=== PATIENT | male | born 1950 | race Caucasian/White ===

== ENCOUNTER 2018-04-16 11:16 | Emergency (ER) | payer MEDICARE, OTHER, BC ==
[2018-04-16] MEDS: CEPHALEXIN 500 MG CAP PO (11:40)
[2018-04-16] MEDS: TRIMETHOPRIM/SULFAMETHOX (DS) TAB PO (11:40)
[2018-04-16] MEDS: DIPHTH/TET/ACEL PERTUSS (ADULT) 0.5 ML VIAL IM* (11:41)
[2018-04-16] MEDS: LIDOCAINE 1% (MDV) 20 ML INJ SC (11:47)
== END 2018-04-16 12:07 | disposition home or self-care (01) ==
LOC: FTE 11:16
DX: L03.011 Cellulitis of right finger (principal); E11.9 Type 2 diabetes mellitus without complications; I10 Essential (primary) hypertension; I25.10 Atherosclerotic heart disease of native coronary artery without angina pectoris; Z23 Encounter for immunization; Z79.01 Long term (current) use of anticoagulants; Z79.4 Long term (current) use of insulin; Z79.82 Long term (current) use of aspirin; Z98.61 Coronary angioplasty status
CPT/HCPCS: 26011; 90471; 90715; 99283-25

== ENCOUNTER 2018-04-17 11:26 | Emergency (ER) | payer MEDICARE, OTHER | END 2018-04-17 13:46 | disposition home or self-care (01) | LOC: FTE 11:26 | DX: L03.011 Cellulitis of right finger (principal); I10 Essential (primary) hypertension; E11.9 Type 2 diabetes mellitus without complications; I25.10 Atherosclerotic heart disease of native coronary artery without angina pectoris; Z79.01 Long term (current) use of anticoagulants; Z79.4 Long term (current) use of insulin; Z79.82 Long term (current) use of aspirin; Z98.61 Coronary angioplasty status | CPT/HCPCS: 99281 ==

== ENCOUNTER 2019-02-22 21:45 | Inpatient (IN) | payer MEDICARE, OTHER ==
[2019-02-22 22:17] LABS: ADD MAN DIFF? NO
[2019-02-22] MEDS: CEFTRIAXONE 1 GM/50 ML (PMX) 50 ML IVPB (22:19)
[2019-02-22] MEDS: ACETAMINOPHEN 325 MG TAB PO (22:20)
[2019-02-22] MEDS: SODIUM CHLORIDE 0.9% 1L BAG IV* (22:20)
[2019-02-22 22:23] LABS: WHITE BLOOD COUNT 15.7 10^3/ul (4.8-10.8)
[2019-02-22 22:23] LABS: ABNORMAL IP MESSAGE 1; BASOPHIL # 0.1 10^3/ul (0.0-0.1); BASOPHILS % 0.3 % (0.0-2.0); EOSINOPHILS # 0.1 10^3/ul (0.0-0.5); EOSINOPHILS % 0.3 % (0.0-7.0); HEMATOCRIT 32.4 % (42.0-52.0); HEMOGLOBIN 10.4 g/dl (14.0-18.0); LYMPHOCYTES # 6.2 10^3/ul (0.8-2.9); LYMPHOCYTES % 39.2 % (15.0-51.0); MEAN CORPUSCULAR HEMOGLOBIN 28.3 pg (29.0-33.0); MEAN CORPUSCULAR HGB CONC 32.1 g/dl (32.0-37.0); MEAN PLATELET VOLUME 10.4 fl (7.4-10.4); MONOCYTE # 0.9 10^3/ul (0.3-0.9); MONOCYTES % 5.7 % (0.0-11.0); NEUTROPHIL # 8.5 10^3/ul (1.6-7.5); NEUTROPHILS % 54.2 % (39.0-77.0); PLATELET COUNT 148 10^3/UL (140-415); POSITIVE DIFF @See below; RED BLOOD COUNT 3.68 10^6/ul (4.70-6.10); RED CELL DISTRIBUTION WIDTH 13.3 % (11.5-14.5)
[2019-02-22 22:32] LABS: ALANINE AMINOTRANSFERASE 28 IU/L (13-69); ALBUMIN 3.8 g/dl (3.3-4.9); ALBUMIN/GLOBULIN RATIO 1.02; ALKALINE PHOSPHATASE 85 IU/L (42-121); ANION GAP 9 (5-13); ASPARTATE AMINO TRANSFERASE 43 IU/L (15-46); BILIRUBIN,INDIRECT 0.5 mg/dl (0-1.1); BILIRUBIN,TOTAL 0.5 mg/dl (0.2-1.3); BLOOD UREA NITROGEN 51 mg/dl (7-20); CALCIUM 8.5 mg/dl (8.4-10.2); CARBON DIOXIDE 24 mmol/L (21-31); CHLORIDE 105 mmol/L (97-110); CREATININE 3.57 mg/dl (0.61-1.24); Estimated GFR 17 mL/min (>60); GLUCOSE 280 mg/dl (70-220); POTASSIUM 5.5 mmol/L (3.5-5.1); SODIUM 138 mmol/L (135-144); TOTAL PROTEIN 7.5 g/dl (6.1-8.1)
[2019-02-22 22:36] LABS: ADD UMIC YES; UR ASCORBIC ACID NEGATIVE (NEGATIVE); UR BACTERIA FEW /HPF (NONE SEEN); UR BILIRUBIN (Dip) NEGATIVE (NEGATIVE); UR BLOOD (Dip) 2+ mg/dL (NEGATIVE); UR CLARITY CLEAR (CLEAR); UR COLOR YELLOW (YELLOW); UR GLUCOSE (Dip) 3+ mg/dL (NEGATIVE); UR KETONES (Dip) NEGATIVE (NEGATIVE); UR LEUKOCYTE ESTERASE (Dip) NEGATIVE Leu/ul (NEGATIVE); UR MUCUS FEW /HPF (NONE SEEN); UR NITRITE (Dip) NEGATIVE (NEGATIVE); UR RBC 18 /HPF (0-5); UR SPECIFIC GRAVITY (Dip) 1.015 (1.003-1.030); UR TOTAL PROTEIN (Dip) 3+ mg/dl (NEGATIVE); UR UROBILINOGEN (Dip) NEGATIVE (NEGATIVE); UR WBC 1 /HPF (0-5)
[2019-02-22 22:43] LABS: INR 1.09; PROTIME 14.2 Sec (11.9-14.9); PT RATIO 1.1
[2019-02-22 22:44] LABS: PARTIAL THROMBOPLASTIN TIME 41.1 Sec (23.0-35.0); TROPONIN-I 0.094 ng/ml (0.000-0.120)
[2019-02-22] MEDS: AZITHROMYCIN 500MG/NS (PMX) 250 ML IV (23:17)
[2019-02-23] MEDS ORDERED: ONDANSETRON 4 MG INJ IV ×2 (00:30→03:00)
[2019-02-23] MEDS ORDERED: ACETAMINOPHEN 325 MG TAB PO (00:30)
[2019-02-23 01:07] LABS: LACTIC ACID 1.4 mmol/L (0.5-2.0)
[2019-02-23] MEDS ORDERED: NACL 0.9% 3 ML SYG IV (03:00)
[2019-02-23] MEDS ORDERED: BISACODYL (EC) 5 MG TAB PO (03:00)
[2019-02-23] MEDS ORDERED: DOCUSATE SODIUM 100 MG CAP PO (03:00)
[2019-02-23] MEDS: NA POLYST SULFON 15 GM/60 ML BTL PO (03:10)
[2019-02-23] MEDS ORDERED: GLUCOSE GEL 15 GRAM TUBE PO ×2 (05:00)
[2019-02-23] MEDS ORDERED: GLUCOSE GEL 15 GRAM TUBE BUCCAL (05:00)
[2019-02-23] MEDS ORDERED: DEXTROSE 50% 50 ML SYRINGE IV ×2 (05:00)
[2019-02-23] MEDS ORDERED: GLUCAGON 1 MG INJ IM (05:00)
[2019-02-23 05:16] LABS: LACTIC ACID 0.8 mmol/L (0.5-2.0)
[2019-02-23] MEDS: HEPARIN 5,000 UNIT/1 ML VIAL SC ×3 (05:45→20:43)
[2019-02-23 06:26] LABS: ABNORMAL IP MESSAGE 1; ADD MAN DIFF? NO; BASOPHIL # 0.1 10^3/ul (0.0-0.1); BASOPHILS % 0.5 % (0.0-2.0); EOSINOPHILS # 0.1 10^3/ul (0.0-0.5); EOSINOPHILS % 0.6 % (0.0-7.0); HEMATOCRIT 29.1 % (42.0-52.0); HEMOGLOBIN 9.1 g/dl (14.0-18.0); LYMPHOCYTES # 5.9 10^3/ul (0.8-2.9); LYMPHOCYTES % 44.8 % (15.0-51.0); MEAN CORPUSCULAR HEMOGLOBIN 27.7 pg (29.0-33.0); MEAN CORPUSCULAR HGB CONC 31.3 g/dl (32.0-37.0); MEAN CORPUSCULAR VOLUME 88.7 fl (82.0-101.0); MEAN PLATELET VOLUME 11.2 fl (7.4-10.4); MONOCYTE # 0.9 10^3/ul (0.3-0.9); MONOCYTES % 6.7 % (0.0-11.0); NEUTROPHIL # 6.1 10^3/ul (1.6-7.5); NEUTROPHILS % 46.9 % (39.0-77.0); PLATELET COUNT 132 10^3/UL (140-415); POSITIVE DIFF @See below; RED BLOOD COUNT 3.28 10^6/ul (4.70-6.10); RED CELL DISTRIBUTION WIDTH 13.3 % (11.5-14.5)
[2019-02-23 06:26] LABS: WHITE BLOOD COUNT 13.1 10^3/ul (4.8-10.8)
[2019-02-23 06:57] LABS: HEMOGLOBIN A1C 7.8 % (0-5.9)
[2019-02-23] MEDS: PIPER-TAZO 2.25 GM (PMX) 50 ML IVPB ×3 (06:59→21:31)
[2019-02-23 07:07] LABS: ALANINE AMINOTRANSFERASE 22 IU/L (13-69); ALBUMIN 3.3 g/dl (3.3-4.9); ALBUMIN/GLOBULIN RATIO 1.06; ALKALINE PHOSPHATASE 74 IU/L (42-121); ANION GAP 10 (5-13); ASPARTATE AMINO TRANSFERASE 25 IU/L (15-46); BILIRUBIN,INDIRECT 0.4 mg/dl (0-1.1); BILIRUBIN,TOTAL 0.4 mg/dl (0.2-1.3); BLOOD UREA NITROGEN 48 mg/dl (7-20); CARBON DIOXIDE 21 mmol/L (21-31); CHLORIDE 112 mmol/L (97-110); CHOL/HDL RATIO 4.5 RATIO; CHOLESTEROL 123 mg/dl (100-200); CREATININE 3.32 mg/dl (0.61-1.24); Estimated GFR 19 mL/min (>60); GLUCOSE 253 mg/dl (70-220); HDL CHOLESTEROL 27 mg/dl (31-75); LDL CHOLESTEROL,CALCULATED 63 mg/dl; MAGNESIUM 1.1 mg/dl (1.7-2.5); POTASSIUM 4.8 mmol/L (3.5-5.1); SODIUM 143 mmol/L (135-144); TOTAL PROTEIN 6.4 g/dl (6.1-8.1); TRIGLYCERIDES 167 mg/dl (0-149)
[2019-02-23] MEDS: INSULIN ASPART [NOVOLOG] 3 ML PEN SC ×5 (07:56→20:47)
[2019-02-23] MEDS: ASPIRIN 81 MG TAB PO (08:54)
[2019-02-23] MEDS: CLOPIDOGREL 75 MG TAB PO (08:54)
[2019-02-23] MEDS: ACETAMINOPHEN 325 MG TAB PO (08:54)
[2019-02-23] MEDS: NICOTINE (14 MG/24 HR) PATCH TRANSDERM (08:55)
[2019-02-23] MEDS: FERROUS SULFATE (EC) 325 MG TAB PO (08:57)
[2019-02-23] MEDS ORDERED: NON-FORMULARY/PATIENT OWN MED (Ferrous Sulfate 325 MG) PO (09:00)
[2019-02-23] MEDS ORDERED: NON-FORMULARY/PATIENT OWN MED ([Nicotine (14 Mg/24 Hr)] 1 PATCH) TRANSDERM (09:00)
[2019-02-23] MEDS: MAGNESIUM SULFATE 4 GM/100 ML 100 ML IVPB (09:59)
[2019-02-23] MEDS ORDERED: MAGNESIUM SULFATE 4 GM/100 ML 100 ML IVPB (13:00)
[2019-02-23] MEDS: MONTELUKAST 10 MG TAB PO (20:42)
[2019-02-23] MEDS: GABAPENTIN 100 MG CAP PO (20:42)
[2019-02-23] MEDS: ATORVASTATIN 10 MG TAB PO (20:42)
[2019-02-23] MEDS: INSULIN GLARGINE [LANTus] (100 UNITS/ML) SYG SC (20:48)
[2019-02-23] MEDS ORDERED: AZITHROMYCIN 500MG/NS (PMX) 250 ML IVPB (23:00)
[2019-02-23] MEDS ORDERED: CEFTRIAXONE 2 GM/50 ML (PMX) 50 ML IVPB (23:00)
[2019-02-24] MEDS: ACCU-CHEK XX (01:40)
[2019-02-24] MEDS: PIPER-TAZO 2.25 GM (PMX) 50 ML IVPB ×3 (05:40→22:35)
[2019-02-24 07:57] LABS: ADD MAN DIFF? NO
[2019-02-24 08:05] LABS: BASOPHILS % 0.5 % (0.0-2.0); EOSINOPHILS # 0.2 10^3/ul (0.0-0.5); EOSINOPHILS % 2.9 % (0.0-7.0); HEMOGLOBIN 8.1 g/dl (14.0-18.0); LYMPHOCYTES # 3.4 10^3/ul (0.8-2.9); MEAN CORPUSCULAR HEMOGLOBIN 27.8 pg (29.0-33.0); MEAN CORPUSCULAR HGB CONC 31.2 g/dl (32.0-37.0); MEAN CORPUSCULAR VOLUME 89.3 fl (82.0-101.0); MEAN PLATELET VOLUME 11.4 fl (7.4-10.4); MONOCYTE # 0.6 10^3/ul (0.3-0.9); MONOCYTES % 7.4 % (0.0-11.0); NEUTROPHIL # 4.1 10^3/ul (1.6-7.5); NEUTROPHILS % 48.6 % (39.0-77.0); PLATELET COUNT 121 10^3/UL (140-415); RED BLOOD COUNT 2.91 10^6/ul (4.70-6.10); RED CELL DISTRIBUTION WIDTH 13.2 % (11.5-14.5)
[2019-02-24 08:05] LABS: WHITE BLOOD COUNT 8.4 10^3/ul (4.8-10.8)
[2019-02-24] MEDS: CLOPIDOGREL 75 MG TAB PO (08:07)
[2019-02-24] MEDS: LORATADINE 10 MG TAB PO (08:07)
[2019-02-24] MEDS: NICOTINE (14 MG/24 HR) PATCH TRANSDERM (08:07)
[2019-02-24] MEDS: ASPIRIN 81 MG TAB PO (08:07)
[2019-02-24] MEDS: FERROUS SULFATE (EC) 325 MG TAB PO (08:07)
[2019-02-24] MEDS: INSULIN ASPART [NOVOLOG] 3 ML PEN SC ×7 (08:09→20:53)
[2019-02-24] MEDS: HEPARIN 5,000 UNIT/1 ML VIAL SC ×2 (08:10→20:54)
[2019-02-24 08:21] LABS: ALANINE AMINOTRANSFERASE 30 IU/L (13-69); ALBUMIN/GLOBULIN RATIO 0.96; ALKALINE PHOSPHATASE 69 IU/L (42-121); ANION GAP 8 (5-13); ASPARTATE AMINO TRANSFERASE 24 IU/L (15-46); BILIRUBIN,INDIRECT 0.4 mg/dl (0-1.1); BILIRUBIN,TOTAL 0.4 mg/dl (0.2-1.3); BLOOD UREA NITROGEN 47 mg/dl (7-20); CARBON DIOXIDE 23 mmol/L (21-31); CHLORIDE 111 mmol/L (97-110); CREATININE 3.88 mg/dl (0.61-1.24); Estimated GFR 15 mL/min (>60); GLUCOSE 172 mg/dl (70-220); POTASSIUM 4.6 mmol/L (3.5-5.1); SODIUM 142 mmol/L (135-144); TOTAL PROTEIN 6.1 g/dl (6.1-8.1)
[2019-02-24 08:27] LABS: MAGNESIUM 2.2 mg/dl (1.7-2.5)
[2019-02-24 08:27] LABS: PHOSPHORUS 3.7 mg/dl (2.5-4.9)
[2019-02-24] MEDS: GUAIFENESIN/DM 5ML CUP PO (13:42)
[2019-02-24] MEDS: DOXYCYCLINE 100 MG TAB PO ×2 (14:28→22:35)
[2019-02-24] MEDS ORDERED: ALBUTEROL/IPRATROPIUM (NEB) 3 ML AMP HHN (14:30)
[2019-02-24] MEDS: ALBUTEROL/IPRATROPIUM (NEB) 3 ML AMP HHN ×2 (14:41→19:46)
[2019-02-24] MEDS: ATORVASTATIN 10 MG TAB PO (20:46)
[2019-02-24] MEDS: MONTELUKAST 10 MG TAB PO (20:46)
[2019-02-24] MEDS: GABAPENTIN 100 MG CAP PO (20:47)
[2019-02-24] MEDS: INSULIN GLARGINE [LANTus] (100 UNITS/ML) SYG SC (20:53)
[2019-02-25] MEDS: ACCU-CHEK XX (02:00)
[2019-02-25] MEDS: PIPER-TAZO 2.25 GM (PMX) 50 ML IVPB (05:40)
[2019-02-25 05:52] LABS: ADD MAN DIFF? NO
[2019-02-25 05:57] LABS: WHITE BLOOD COUNT 6.1 10^3/ul (4.8-10.8)
[2019-02-25 05:57] LABS: BASOPHILS % 0.5 % (0.0-2.0); EOSINOPHILS # 0.3 10^3/ul (0.0-0.5); EOSINOPHILS % 4.3 % (0.0-7.0); HEMATOCRIT 24.1 % (42.0-52.0); HEMOGLOBIN 7.7 g/dl (14.0-18.0); LYMPHOCYTES # 2.1 10^3/ul (0.8-2.9); LYMPHOCYTES % 34.1 % (15.0-51.0); MEAN CORPUSCULAR HEMOGLOBIN 28.1 pg (29.0-33.0); MEAN PLATELET VOLUME 10.8 fl (7.4-10.4); MONOCYTE # 0.5 10^3/ul (0.3-0.9); MONOCYTES % 8.1 % (0.0-11.0); NEUTROPHIL # 3.2 10^3/ul (1.6-7.5); NEUTROPHILS % 52.5 % (39.0-77.0); PLATELET COUNT 119 10^3/UL (140-415); RED BLOOD COUNT 2.74 10^6/ul (4.70-6.10); RED CELL DISTRIBUTION WIDTH 13.3 % (11.5-14.5)
[2019-02-25 06:21] LABS: PHOSPHORUS 3.6 mg/dl (2.5-4.9)
[2019-02-25 06:29] LABS: ALANINE AMINOTRANSFERASE 35 IU/L (13-69); ALKALINE PHOSPHATASE 70 IU/L (42-121); ANION GAP 7 (5-13); ASPARTATE AMINO TRANSFERASE 28 IU/L (15-46); BILIRUBIN,INDIRECT 0.2 mg/dl (0-1.1); BILIRUBIN,TOTAL 0.2 mg/dl (0.2-1.3); BLOOD UREA NITROGEN 46 mg/dl (7-20); CALCIUM 8.1 mg/dl (8.4-10.2); CARBON DIOXIDE 22 mmol/L (21-31); CHLORIDE 113 mmol/L (97-110); CREATININE 3.61 mg/dl (0.61-1.24); Estimated GFR 17 mL/min (>60); GLUCOSE 206 mg/dl (70-220); POTASSIUM 5.2 mmol/L (3.5-5.1); SODIUM 142 mmol/L (135-144)
[2019-02-25] MEDS: ALBUTEROL/IPRATROPIUM (NEB) 3 ML AMP HHN ×3 (07:53→20:12)
[2019-02-25] MEDS: CLOPIDOGREL 75 MG TAB PO (08:21)
[2019-02-25] MEDS: NICOTINE (14 MG/24 HR) PATCH TRANSDERM (08:21)
[2019-02-25] MEDS: DOXYCYCLINE 100 MG TAB PO (08:21)
[2019-02-25] MEDS: ASPIRIN 81 MG TAB PO (08:22)
[2019-02-25] MEDS: FERROUS SULFATE (EC) 325 MG TAB PO (08:22)
[2019-02-25] MEDS: LORATADINE 10 MG TAB PO (08:22)
[2019-02-25] MEDS: INSULIN ASPART [NOVOLOG] 3 ML PEN SC ×7 (08:25→20:26)
[2019-02-25] MEDS: HEPARIN 5,000 UNIT/1 ML VIAL SC (08:27)
[2019-02-25 11:52] LABS: HEMOGLOBIN 7.3 g/dl (14.0-18.0)
[2019-02-25] MEDS: NA POLYST SULFON 15 GM/60 ML BTL PO (11:53)
[2019-02-25] MEDS: LEVOFLOXACIN 750 MG TABLET PO (14:13)
[2019-02-25] MEDS: MONTELUKAST 10 MG TAB PO (20:23)
[2019-02-25] MEDS: GABAPENTIN 100 MG CAP PO (20:23)
[2019-02-25] MEDS: ATORVASTATIN 10 MG TAB PO (20:23)
[2019-02-25] MEDS: INSULIN GLARGINE [LANTus] (100 UNITS/ML) SYG SC (20:26)
[2019-02-26] MEDS: ACCU-CHEK XX (02:00)
[2019-02-26 05:49] LABS: ADD MAN DIFF? NO
[2019-02-26 05:55] LABS: WHITE BLOOD COUNT 5.7 10^3/ul (4.8-10.8)
[2019-02-26 05:55] LABS: BASOPHILS % 0.5 % (0.0-2.0); EOSINOPHILS # 0.2 10^3/ul (0.0-0.5); HEMATOCRIT 23.9 % (42.0-52.0); HEMOGLOBIN 7.4 g/dl (14.0-18.0); LYMPHOCYTES # 2.4 10^3/ul (0.8-2.9); LYMPHOCYTES % 40.9 % (15.0-51.0); MEAN CORPUSCULAR HEMOGLOBIN 27.8 pg (29.0-33.0); MEAN CORPUSCULAR VOLUME 89.8 fl (82.0-101.0); MEAN PLATELET VOLUME 10.7 fl (7.4-10.4); MONOCYTE # 0.4 10^3/ul (0.3-0.9); MONOCYTES % 7.3 % (0.0-11.0); NEUTROPHIL # 2.6 10^3/ul (1.6-7.5); NEUTROPHILS % 46.1 % (39.0-77.0); PLATELET COUNT 142 10^3/UL (140-415); RED BLOOD COUNT 2.66 10^6/ul (4.70-6.10); RED CELL DISTRIBUTION WIDTH 13.1 % (11.5-14.5)
[2019-02-26 06:27] LABS: PHOSPHORUS 3.8 mg/dl (2.5-4.9)
[2019-02-26 06:27] LABS: MAGNESIUM 1.8 mg/dl (1.7-2.5)
[2019-02-26 06:50] LABS: ALANINE AMINOTRANSFERASE 31 IU/L (13-69); ALBUMIN 2.9 g/dl (3.3-4.9); ALBUMIN/GLOBULIN RATIO 0.93; ALKALINE PHOSPHATASE 68 IU/L (42-121); ANION GAP 8 (5-13); ASPARTATE AMINO TRANSFERASE 26 IU/L (15-46); BILIRUBIN,INDIRECT 0.3 mg/dl (0-1.1); BILIRUBIN,TOTAL 0.3 mg/dl (0.2-1.3); BLOOD UREA NITROGEN 43 mg/dl (7-20); CALCIUM 8.5 mg/dl (8.4-10.2); CARBON DIOXIDE 22 mmol/L (21-31); CHLORIDE 116 mmol/L (97-110); CREATININE 3.25 mg/dl (0.61-1.24); Estimated GFR 19 mL/min (>60); GLUCOSE 89 mg/dl (70-220); POTASSIUM 4.8 mmol/L (3.5-5.1); SODIUM 146 mmol/L (135-144)
[2019-02-26] MEDS: INSULIN ASPART [NOVOLOG] 3 ML PEN SC ×7 (07:35→20:35)
[2019-02-26] MEDS: ALBUTEROL/IPRATROPIUM (NEB) 3 ML AMP HHN ×3 (08:02→19:37)
[2019-02-26] MEDS: LORATADINE 10 MG TAB PO (08:31)
[2019-02-26] MEDS: CLOPIDOGREL 75 MG TAB PO (08:31)
[2019-02-26] MEDS: ASPIRIN 81 MG TAB PO (08:31)
[2019-02-26] MEDS: FERROUS SULFATE (EC) 325 MG TAB PO (08:31)
[2019-02-26 09:35] LABS: IRON 58 ug/dl (35-150)
[2019-02-26 09:44] LABS: % IRON SATURATION 24 % SAT (22-52); TOTAL IRON BINDING CAPACITY 239 ug/dl (241-421)
[2019-02-26 10:10] LABS: FERRITIN 63.1 ng/ml (11.1-264.0)
[2019-02-26] MEDS: AMLODIPINE 5 MG TAB PO (12:17)
[2019-02-26 13:54] LABS: IMMEDIATE SPIN CROSSMATCH 1 1
[2019-02-26] MEDS: SOD CHLORIDE 0.9% 250 ML IV* (14:28)
[2019-02-26] MEDS: ATORVASTATIN 10 MG TAB PO (20:32)
[2019-02-26] MEDS: MONTELUKAST 10 MG TAB PO (20:32)
[2019-02-26] MEDS: GABAPENTIN 100 MG CAP PO (20:32)
[2019-02-26] MEDS: INSULIN GLARGINE [LANTus] (100 UNITS/ML) SYG SC (20:34)
[2019-02-27] MEDS: ACCU-CHEK XX (02:00)
[2019-02-27 06:19] LABS: ADD MAN DIFF? NO
[2019-02-27 06:26] LABS: BASOPHIL # 0.1 10^3/ul (0.0-0.1); BASOPHILS % 0.9 % (0.0-2.0); EOSINOPHILS # 0.3 10^3/ul (0.0-0.5); EOSINOPHILS % 3.9 % (0.0-7.0); HEMATOCRIT 27.7 % (42.0-52.0); HEMOGLOBIN 8.7 g/dl (14.0-18.0); LYMPHOCYTES # 2.5 10^3/ul (0.8-2.9); LYMPHOCYTES % 36.4 % (15.0-51.0); MEAN CORPUSCULAR HEMOGLOBIN 28.2 pg (29.0-33.0); MEAN CORPUSCULAR HGB CONC 31.4 g/dl (32.0-37.0); MEAN CORPUSCULAR VOLUME 89.9 fl (82.0-101.0); MEAN PLATELET VOLUME 10.9 fl (7.4-10.4); MONOCYTE # 0.5 10^3/ul (0.3-0.9); MONOCYTES % 7.7 % (0.0-11.0); NEUTROPHIL # 3.4 10^3/ul (1.6-7.5); NEUTROPHILS % 49.1 % (39.0-77.0); PLATELET COUNT 155 10^3/UL (140-415); RED BLOOD COUNT 3.08 10^6/ul (4.70-6.10); RED CELL DISTRIBUTION WIDTH 13.2 % (11.5-14.5)
[2019-02-27 06:45] LABS: ANION GAP 7 (5-13); BLOOD UREA NITROGEN 43 mg/dl (7-20); CALCIUM 8.6 mg/dl (8.4-10.2); CARBON DIOXIDE 22 mmol/L (21-31); CHLORIDE 114 mmol/L (97-110); CREATININE 3.15 mg/dl (0.61-1.24); Estimated GFR 20 mL/min (>60); GLUCOSE 121 mg/dl (70-220); POTASSIUM 4.9 mmol/L (3.5-5.1); SODIUM 143 mmol/L (135-144)
[2019-02-27] MEDS: INSULIN ASPART [NOVOLOG] 3 ML PEN SC ×5 (08:00→13:31)
[2019-02-27] MEDS: AMLODIPINE 5 MG TAB PO (08:25)
[2019-02-27] MEDS: LORATADINE 10 MG TAB PO (08:25)
[2019-02-27] MEDS: ASPIRIN 81 MG TAB PO (08:26)
[2019-02-27] MEDS: FERROUS SULFATE (EC) 325 MG TAB PO (08:26)
[2019-02-27] MEDS: CLOPIDOGREL 75 MG TAB PO (08:28)
[2019-02-27] MEDS: ALBUTEROL/IPRATROPIUM (NEB) 3 ML AMP HHN (08:49)
[2019-02-27] MEDS: GUAIFENESIN/DM 5ML CUP PO (09:22)
[2019-02-27] MEDS: LEVOFLOXACIN 750 MG TABLET PO (12:21)
== END 2019-02-27 14:00 | disposition home or self-care (01) | DRG 871 ==
LOC: E/R 21:45 → PP2 02-23 03:01
PROVIDERS: Pediatrics
PROC: 30233N1 Transfusion of Nonautologous Red Blood Cells into Peripheral Vein, Percutaneous Approach (ICD-10-PCS; principal; 2019-02-26)
DX: A41.9 Sepsis, unspecified organism (principal); J18.9 Pneumonia, unspecified organism; I13.0 Hypertensive heart and chronic kidney disease with heart failure and stage 1 through stage 4 chronic kidney disease, or unspecified chronic kidney disease; N18.4 Chronic kidney disease, stage 4 (severe); N17.9 Acute kidney failure, unspecified; E11.22 Type 2 diabetes mellitus with diabetic chronic kidney disease; I50.9 Heart failure, unspecified; I25.5 Ischemic cardiomyopathy; E11.21 Type 2 diabetes mellitus with diabetic nephropathy; D69.6 Thrombocytopenia, unspecified; E83.42 Hypomagnesemia; D63.1 Anemia in chronic kidney disease; I25.10 Atherosclerotic heart disease of native coronary artery without angina pectoris; Z79.82 Long term (current) use of aspirin; Z79.4 Long term (current) use of insulin; Z79.84 Long term (current) use of oral hypoglycemic drugs; Z95.5 Presence of coronary angioplasty implant and graft
CPT/HCPCS: 36415; 36430; 71045; 71250; 80048; 80053; 80061; 81001; 82728; 82962; 83036; 83540; 83605; 83735; 84100; 84443; 84484; 85014; 85018; 85025; 85610; 85730; 86850; 86900; 86901; 86920; 87040-91; 87086; 93005; 94640; 94664; 96374; 96375; 99285-25